=== PATIENT | male | born 1975 | race Caucasian/White ===

== ENCOUNTER 2021-08-25 10:47 | Emergency (ER) | payer OTHER ==
--- NOTE | 2021-08-25 11:47 | EDM.PDOC ---
ED HPI GENERAL MEDICAL PROBLEM - General Chief Complaint: Lower Extremity Injury/Pain Stated Complaint: BLEW OUT LEFT KNEE Time Seen by Provider: 08/25/21 11:30 Source of Information: Reports: Patient History Limitations: Reports: No Limitations - History of Present Illness INITIAL COMMENTS - FREE TEXT/NARRATIVE: 45-year-old male who has been having some problems with his left knee especially with kneeling or moving certain directions over the past year, he feels a catch and a pain that takes several hours to settle down. No swelling, no previous surgeries, no significant knee injuries in the past. Last night he was working around the fireplace moving some firewood, while turning he felt a pop in his knee, and now has significant pain in the lateral aspect of the knee and pain with weightbearing. He has the knee Partha wrapped which is helpful. No significant swelling. Onset: Sudden Duration: Hour(s): (12 hours ago) Location: Reports: Lower Extremity, Left Quality: Reports: Sharp, Stabbing Severity: Moderate Worsens with: Reports: Other (Weightbearing is very painful) Left Knee Pain Score (Numeric/FACES): 3 - Related Data Allergies Allergy/AdvReac Type Severity Reaction Status Date / Time No Known Allergies Allergy Verified 08/25/21 11:23 Home Meds: Home Meds NK [No Known Home Meds] 08/25/21 [History] Past Medical History HEENT History: Reports: Allergic Rhinitis, Hard of Hearing, Impaired Vision Respiratory History: Reports: Sleep Apnea Genitourinary History: Reports: Renal Calculus Musculoskeletal History: Reports: Fracture Neurological History: Reports: Concussion - Past Surgical History HEENT Surgical History: Reports: Naso-Sinus Surgery, Other (See Below) Other HEENT Surgeries/Procedures: uvulectomy Musculoskeletal Surgical History: Reports: Shoulder Surgery, Other (See Below) Other Musculoskeletal Surgeries/Procedures:: bilateral rotator cuff repair, bicep repair. Social & Family History - Tobacco Use Tobacco Use Status *Q: Never Tobacco User - Caffeine Use Caffeine Use: Reports: Coffee - Recreational Drug Use Recreational Drug Use: No Review of Systems - Review of Systems Review Of Systems: See Below Constitutional: Denies: Fever Respiratory: Reports: No Symptoms Cardiovascular: Reports: No Symptoms GI/Abdominal: Reports: No Symptoms Musculoskeletal: Reports: Other (Left knee pain, knee feels "unstable") Skin: Denies: Bruising, Erythema Neurological: Denies: Paresthesia ED EXAM, GENERAL - Physical Exam Exam: See Below Exam Limited By: No Limitations General Appearance: Alert, No Apparent Distress Respiratory/Chest: No Respiratory Distress Cardiovascular: Normal Peripheral Pulses, Regular Rate, Rhythm Extremities: Limited Range of Motion (He has pain with flexion of the knee, also significant tenderness to palpation along the lateral aspect and the anterior tibial plateau. Varus stress to the knee is also tender laterally), Other (Gross examination of the knee shows no significant asymmetry or swelling of the left knee compared to the right.). No: Joint Swelling Neurological: Alert, Oriented Psychiatric: Normal Affect, Normal Mood Course - Vital Signs Last Recorded V/S: Last Vital Signs Temp 97.8 F 08/25/21 11:22 Pulse 74 08/25/21 11:22 Resp 16 08/25/21 11:22 BP 128/81 08/25/21 11:22 Pulse Ox 98 08/25/21 11:22 - Orders/Labs/Meds Orders: Active Orders 24 hr Category Date Time Status Consult to Orthopedic Clinic [CONS] Routine Cons 08/25/21 11:58 Active DME for Discharge [COMM] Stat Oth 08/25/21 11:54 Ordered DME for Discharge [COMM] Stat Oth 08/25/21 11:54 Ordered - Re-Assessments/Exams Free Text/Narrative Re-Assessment/Exam: 08/25/21 11:58 An x-ray of the left knee was obtained which looks normal. This patient likely had some type of meniscus or cartilaginous injury. He was placed in a knee immobilizer, given crutches, and will recheck with orthopedics next week, formal consultation has been made. Departure - Departure Time of Disposition: 12:29 Disposition: Home, Self-Care 01 Clinical Impression: Injury of left knee Qualifiers: Encounter type: initial encounter Qualified Code(s): S89.92XA - Unspecified injury of left lower leg, initial encounter - Discharge Information Instructions: Knee Sprain, Adult, [id number] Referrals: PCP,None [Primary Care Provider] - Forms: ED Department Discharge Care Plan Goals: Use knee immobilizer for comfort and crutches for ambulation. You should be getting a call next Saturday for an appointment time hopefully on Saturday to recheck your knee with orthopedics with Dr. Ortiz. Ibuprofen may be helpful. Sepsis Event Note (ED) - Evaluation Sepsis Screening Result: No Definite Risk - Focused Exam Vital Signs: Vital Signs Temp Pulse Resp BP Pulse Ox 08/25/21 11:22 97.8 F 74 16 128/81 98 08/25/21 11:18 97.8 F 74 16 128/81 98 - My Orders Last 24 Hours: My Active Orders 08/25/21 11:54 DME for Discharge [COMM] Stat DME for Discharge [COMM] Stat 08/25/21 11:58 Consult to Orthopedic Clinic [CONS] Routine - Assessment/Plan Last 24 Hours: My Active Orders 08/25/21 11:54 DME for Discharge [COMM] Stat DME for Discharge [COMM] Stat 08/25/21 11:58 Consult to Orthopedic Clinic [CONS] Routine
--- NOTE | 2021-08-25 12:31 | CR ---
Knee Min 4V Lt CLINICAL HISTORY: Injury FINDINGS: No acute fracture or dislocation is noted. There are no osseous lesions. Impression: Negative
== END 2021-08-25 12:29 | disposition home or self-care (01) ==
LOC: JP.ED 10:47
DX: S89.92XA Unspecified injury of left lower leg, initial encounter (principal); X50.1XXA Overexertion from prolonged static or awkward postures, initial encounter
CPT/HCPCS: 73564-26-LT; 73564-LT; 99283-25